=== PATIENT | male | born 1940 | race Caucasian/White ===

== ENCOUNTER 2018-08-06 14:00 | Inpatient (IN) ==
--- NOTE | 2018-08-06 14:41 | PROVIDER DOCUMENTATION ---
[id number] Abuse/Overdose - General Chief Complaint: Fall Stated Complaint: FALL Time Seen by Provider: 08/06/18 14:11 Allergies/Adverse Reactions: Allergies Allergy/AdvReac Type Severity Reaction Status Date / Time No Known Allergies Allergy Verified 08/06/18 14:41 Progress - PLAN OF CARE/RESULTS Progress/Plan/Lab Results: Orders Category Date Time Status cxr [CHEST-2 VIEWS] [RAD] Stat Exams 08/06/18 14:35 Ordered BNP [PRO B-NATRIURETIC PEPTIDE] Stat Lab 08/06/18 14:35 Uncollected CBC WITH ELECTRONIC DIFF [HEME] Stat Lab 08/06/18 14:35 Uncollected COMPREHENSIVE METABOLIC PANEL [CHEM] Stat Lab 08/06/18 14:35 Uncollected
--- NOTE | 2018-08-06 14:50 | PROVIDER DOCUMENTATION ---
HPI-General Adult - General Chief Complaint: Fall Stated Complaint: FALL Time Seen by Provider: 08/06/18 14:11 Source: patient, family Allergies/Adverse Reactions: Patient Allergies Allergy/AdvReac Type Severity Reaction Status Date / Time No Known Allergies Allergy Verified 08/06/18 14:41 Home Medications: Home Medication List Medication Instructions Recorded Confirmed Last Taken Type Amlodipine [Norvasc] 5 mg PO DAILY 08/06/18 08/06/18 Unknown History Aspirin [Adult Aspirin] 81 mg PO DAILY 08/06/18 08/06/18 Unknown History Budesonide/Formoterol Fumarate 2 inh INH BID 08/06/18 08/06/18 Unknown History [Symbicort 160-4.5 Mcg Inhaler] Fluticasone Propionate [Flonase 2 inh INH DAILY PRN 08/06/18 08/06/18 Unknown History Allergy Relief] Furosemide [Lasix] 20 mg PO PRN PRN 08/06/18 08/06/18 Unknown History Ketoconazole 2% Cream [Nizoral 2% 1 applicatn ORDERED PRN PRN 08/06/18 08/06/18 Unknown History Cream] LISINOpril [Prinivil] 10 mg PO DAILY 08/06/18 08/06/18 Unknown History Lanolin Cream [Lantiseptic Cream] 1 applicatn ORDERED BID 08/06/18 08/06/18 Unknown History Niacin 1,000 mg PO DAILY 08/06/18 08/06/18 Unknown History Omeprazole [Prilosec] 20 mg PO DAILY 08/06/18 08/06/18 Unknown History Ropinirole [Requip] 1 tab PO BID 08/06/18 08/06/18 Unknown History Sertraline HCl [Zoloft] 100 mg PO DAILY 08/06/18 08/06/18 Unknown History - History of Present Illness -Gen Adult Nature of Presenting Problems: Patient is poor Historian and Hx by : she said he fell twice yesterday, not sure if he hit his head or no, no LOC reported. patient has COPD on Home O2, dementia, parkinson. report he has falls in the last few month not sure why. patient denies chest pain, SOB, lightheadedness or other complaints. patient walk with walker and has left side prosthetic limb. patient with Hx of abdominal Aortic Aneurysm 5 cm plan is to monitor due to patient fragile for surgery. Review of Systems - Adult - REVIEW OF SYSTEMS - ADULT Constitutional: reports: no symptoms reported Eyes: reports: no symptoms reported Ears, Nose, Mouth & Throat: reports: no symptoms reported Cardiovascular: reports: no symptoms reported Respiratory: reports: no symptoms reported Gastrointestinal: reports: no symptoms reported Neurological: reports: other (dementia) Past History - Adult - PAST MEDICAL HISTORY-ADULT Review of Records: reports: Old Records Reviewed, Nursing Assessment Review Physical Exam-General - PHYSICAL EXAM-ADULT Initial Vital Signs Reviewed: Yes - CONSTITUTIONAL General Appearance: alert, mild distress - EYES Eyes: PERRL/EOMI - HEAD, EARS, NOSE, MOUTH & THROAT HENMT: normocephalic/atraumatic - NECK Neck: non-tender, full range of motion, supple - RESPIRATORY Respiratory: lungs clear, normal breath sounds - CARDIOVASCULAR Cardiovascular: normal peripheral pulses, regular rate, rhythm, no edema - GASTROINTESTINAL (ABDOMEN) Abdominal Exam: normal bowel sounds, non tender, soft - MUSCULOSKELETAL Back Exam: no CVA tenderness, no vertebral tenderness Extremity: tenderness (Palpation left hip), other (left lower leg amputation. Swelling Distal left forearm, TTT Neurovascualr exam NL B/L UE LE) - PSYCHIATRIC Psych/Mental Status: depressed affect Progress - PLAN OF CARE/RESULTS Progress/Plan/Lab Results: Orders Category Date Time Status cxr [CHEST-1 VIEW] [RAD] Stat Exams 08/06/18 14:43 Ordered BNP [PRO B-NATRIURETIC PEPTIDE] Stat Lab 08/06/18 14:35 Uncollected CBC WITH ELECTRONIC DIFF [HEME] Stat Lab 08/06/18 14:35 Uncollected COMPREHENSIVE METABOLIC PANEL [CHEM] Stat Lab 08/06/18 14:35 Uncollected TROPONIN T Stat Lab 08/06/18 14:44 Uncollected EKG [EKG] Stat Ther 08/06/18 14:44 Ordered Patient care, assessment and plan discussed with the attending physician Dr. Swift and she agree with the plan as documented. Result Diagrams: 08/06/18 15:02 08/06/18 15:02 - REASSESSMENT Reassessment #1 Status: unchanged Reassessment #2 Status: unchanged - XRAY 1 XRAY: Left XRAY Study: Wrist (Fractures to the distal radius and ulna.) - CT/MRI 1 CT Study: Angiogram (HISTORY: fall x2 tachypnea, tachycardia TECHNIQUE: 1. CT chest with intravenous contrast. Arteriogram protocol with MIP images. 2. CT abdomen with intravenous contrast. Arteriogram protocol with MIP images. COMPARISON: None. FINDINGS: Chest: There are tiny bilateral pleural effusions. The heart is enlarged. No thoracic aortic aneurysm or section. Normal opacific ation of the pulmonary arteries and their major branches. No enlarged mediastinal or hilar lymph nodes. Moderate to prominent emphysema. No pneumothoraces. No displaced rib fracture. The thoracic spine will be discussed under the separate thoracic spine report. ABDOMEN: There is a calcified gallst one. No adjacent inflammation. Normal enhancement of the liver and spleen. No hepatic or splenic laceration. Normal pancreas and adrenal glands. Normal enhancement of the kidneys. No retroperitoneal hematoma. No bowel obstruction. No ascites. Prominent atherosclerosis. Approximately 30% narrowing to the takeoff of the celiac artery and superior mesenteric artery. 50-70% narrowing at the takeoff of the left renal artery. Approximately 30% narrowing at the takeoff of the right renal artery. There is a large distal abdominal aortic aneurysm. This measures 5.5 cm in AP diameter and 5.5 cm in transverse diameter. This extends 9 cm in length. It begins beneath the takeoff of the renal arteries. It does not extend into the iliac arteries. The lumbar spine will be discussed under the separate lumbar spine report. IMPRESSION: Chest: No injury. There are small pleural effusions and cardiomegaly. Abdomen and pelvis: No injury. Large distal abdominal aortic aneurysm.), Head (EXAM : CT HEAD/C-SPINE W/O CONTRAST HISTORY: fall x2 TECHNIQUE: 1. CT head without contrast 2. CT cervical spine without contrast COMPARISON: None. FINDINGS: Head: No parenchymal hemorrhage. No epidural or subdural hematoma. No subarachnoid hemorrhage. There is atrophy with chronic microvascular ischemic c hanges and old right basal ganglia lacunar infarct. No mass identified on this noncontrasted exam. No hydrocephalus. No skull fracture. Cervical spine: Mild scoliosis with mild degenerative changes.. No precervical soft tissue swelling. No subluxation. No fracture. IMPRESSION: Head: No hemorrhage. No injury. Cervical spine: No acute fracture.), Lumbar Spine (TECHNIQUE: 1. CT thoracic spine without contrast 2. CT lumbar spine without contrast COMPARISON: No plain films were obtained. Plain films should have been obtained prior to the CT. FINDINGS: Thoracic spine: Mild scoliosis. 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 Minimal anterior wedging to the T5 vertebra. Age indete rminate. No paraspinal hematoma. No spinal stenosis. Lumbar spine: Approximately 50% compression fracture to the L1 vertebra. The bone spurs at T12-L1 and L1-L2. Mild anterior wedging to the L2 vertebra. Collapse of the L4 no paraspinal hematoma. Multilevel spinal stenosis. Vertebra. Bridging bone spurring at L3-4. IMPRESSION: Thoracic spine: Minimal anterior wedging to the T5 vertebra which may be old. Lumbar spine: Multiple lumbar fractures. All of these may be old. This exam was performed using automated exposure control, adjustment of mA or kV according to patient size, and/or use of iterative reconstruction technique.), Pelvis (TECHNIQUE: CT pelvis without contrast COMPARISON: No plain films obtained. Plain films should have been performed prior to the CT. FINDINGS: There is an intertrochanteric fracture to the left hip. The femoral head remains in the acetabulum. The femoral shaft is rotated and superiorly placed. No fracture to the right hip. No widening of the pubic symphysis. IMPRESSION: Intertrochanteric fracture to the left hip.) - CONSULTS/PCP/HOSPITALIST Notification #1 *Consult/PCP/Hospitalist*: Dr. Acevedo Time Discussed: 20:55 Consult Disposition: Admit (Hx, PE and all imaging finding discussed. admit.) #2 Consult: Dr. Ty Time Discussed: 21:09 Consult Disposition: Admit (Hx, PE, patient care and ortho recommendations discussed.) Departure - Departure Date of Disposition Decision: 08/06/18 Time of Disposition Decision: 21:09 DIAGNOSIS: Pleural effusion Fracture, intertrochanteric, left femur Qualifiers: Encounter type: initial encounter Fracture type: closed Fracture alignment: nondisplaced Qualified Code(s): S72.145A - Nondisplaced intertrochanteric fracture of left femur, initial encounter for closed fracture Fracture of distal radius and ulna Qualifiers: Encounter type: initial encounter Fracture type: closed Laterality: left Qualified Code(s): S52.502A - Unspecified fracture of the lower end of left radius, initial encounter for closed fracture Leukocytosis Qualifiers: Leukocytosis type: other Qualified Code(s): D72.828 - Other elevated white blood cell count AAA (abdominal aortic aneurysm) Qualifiers: Presence of rupture: without rupture Qualified Code(s): I71.4 - Abdominal aortic aneurysm, without rupture Disposition: ADMITTED INPATIENT 09 Certified Medical Emergency: Emergent Condition: Stable - Critical Care Note This patient required my direct & personal management of CC.: No Attestation - Physician/ YO Attestation Patient care was provided by Advanced Practice Provider:: No The physician spent face to face time with patient:: Yes Advanced Practice Provider documentation review:: Supervising physician onsite and consulted in the evaluation and care of this patient. The physician did have a face to face encounter with the patient.
--- NOTE | 2018-08-06 15:41 | Diag Imaging Result Doc PS360 ---
EXAM: CHEST-1 VIEW HISTORY: fall, tachypnea TECHNIQUE: Semiupright chest single view COMPARISON: None. FINDINGS: Poor inspiratory effort. There is a small left pleural effusion. There is atelectasis or an infiltrate in the left base. No cardiomegaly. IMPRESSION: Small left pleural effusion with basilar atelectasis and possibly and underlying infiltrate Electronically signed by Manny Bee 08/06/2018 3:38 PM
[2018-08-06 15:42] LABS: BASO# 0.03 X1000 (0.0-0.2); BASO% 0.2 % (0.0-0.8); EOS# 0.19 X1000 (0.0-0.7); EOS% 1.4 % (0.0-10.0); HEMOGLOBIN 10.9 g/dL (14.0-18.0); IMM GRAN# 0.04 X1000 (0.0-0.04); IMM GRAN% 0.3 % (0.0-0.5); LYMPH# 0.95 X1000 (1.2-3.4); LYMPH% 6.9 % (20.5-51.1); MCH 24.4 PG (27-31); MCHC 30.3 g/dL (33-37); MCV 80.5 FL (81-99); MONO# 1.13 X1000 (0.11-0.59); MONO% 8.2 % (1.7-9.3); MPV 10.1 FL (7.4-10.4); NEUT# 11.51 X1000 (1.4-6.5); PLT 346 X1000 (130-400); RBC 4.47 XMIL (4.7-6.1); RDW 17.6 % (11.5-14.5); WBC 13.85 X1000 (4.8-10.8)
[2018-08-06] MEDS ORDERED: ROCEPHIN 1 GM in NS 50 ML IV ONE (16:00)
[2018-08-06 16:11] LABS: AGAP 9; ALB/GLOB RATIO 0.5; ALBUMIN 2.2 g/dL (3.5-5.0); ALKALINE PHOSPHATASE 113 U/L (32-122); BUN 11 mg/dL (8-22); CALCIUM 8.1 mg/dL (8.8-10.2); CHLORIDE 103 mmol/L (98-107); COSMO 273; CREATININE 0.6 mg/dL (0.7-1.2); ESTIMATED GFR > 60; GLUCOSE 131 mg/dL (70-104); GOT 17 U/L (10-34); GPT 15 U/L (10-44); POTASSIUM 3.2 mmol/L (3.5-5.1); SODIUM 136 mmol/L (136-145); TCO2 24 mmol/L (25-35); TOTAL BILIRUBIN 0.25 mg/dL (0.20-1.00); TOTAL PROTEIN 6.9 g/dL (6.3-8.3)
--- NOTE | 2018-08-06 17:18 | Diag Imaging Result Doc PS360 ---
EXAM : CT HEAD/C-SPINE W/O CONTRAST HISTORY: fall x2 TECHNIQUE: 1. CT head without contrast 2. CT cervical spine without contrast COMPARISON: None. FINDINGS: Head: No parenchymal hemorrhage. No epidural or subdural hematoma. No subarachnoid hemorrhage. There is atrophy with chronic microvascular ischemic changes and old right basal ganglia lacunar infarct. No mass identified on this noncontrasted exam. No hydrocephalus. No skull fracture. Cervical spine: Mild scoliosis with mild degenerative changes.. No precervical soft tissue swelling. No subluxation. No fracture. IMPRESSION: Head: No hemorrhage. No injury. Cervical spine: No acute fracture. This exam was performed using automated exposure control, adjustment of mA or kV according to patient size, and/or use of iterative reconstruction technique. Electronically signed by Manny Bee 08/06/2018 5:16 PM
--- NOTE | 2018-08-06 17:28 | Diag Imaging Result Doc PS360 ---
EXAM: CT T-SPINE/L-SPINE W/O CON HISTORY: fall x2 TECHNIQUE: 1. CT thoracic spine without contrast 2. CT lumbar spine without contrast COMPARISON: No plain films were obtained. Plain films should have been obtained prior to the CT. FINDINGS: Thoracic spine: Mild scoliosis. 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 Minimal anterior wedging to the T5 vertebra. Age indeterminate. No paraspinal hematoma. No spinal stenosis. Lumbar spine: Approximately 50% compression fracture to the L1 vertebra. The bone spurs at T12-L1 and L1-L2. Mild anterior wedging to the L2 vertebra. Collapse of the L4 no paraspinal hematoma. Multilevel spinal stenosis. Vertebra. Bridging bone spurring at L3-4. IMPRESSION: Thoracic spine: Minimal anterior wedging to the T5 vertebra which may be old. Lumbar spine: Multiple lumbar fractures. All of these may be old. This exam was performed using automated exposure control, adjustment of mA or kV according to patient size, and/or use of iterative reconstruction technique. Electronically signed by Manny Bee 08/06/2018 5:26 PM
--- NOTE | 2018-08-06 17:37 | Diag Imaging Result Doc PS360 ---
EXAM: CT PELVIS W/O CONTRAST HISTORY: fall x2 unable to walk TECHNIQUE: CT pelvis without contrast COMPARISON: No plain films obtained. Plain films should have been performed prior to the CT. FINDINGS: There is an intertrochanteric fracture to the left hip. The femoral head remains in the acetabulum. The femoral shaft is rotated and superiorly placed. No fracture to the right hip. No widening of the pubic symphysis. IMPRESSION: Intertrochanteric fracture to the left hip. This exam was performed using automated exposure control, adjustment of mA or kV according to patient size, and/or use of iterative reconstruction technique. Electronically signed by Manny Bee 08/06/2018 5:35 PM
--- NOTE | 2018-08-06 17:52 | Diag Imaging Result Doc PS360 ---
EXAM: CT ANGIOGRAM THORAX/ABDOMEN HISTORY: fall x2 tachypnea, tachycardia TECHNIQUE: 1. CT chest with intravenous contrast. Arteriogram protocol with MIP images. 2. CT abdomen with intravenous contrast. Arteriogram protocol with MIP images. COMPARISON: None. FINDINGS: Chest: There are tiny bilateral pleural effusions. The heart is enlarged. No thoracic aortic aneurysm or section. Normal opacification of the pulmonary arteries and their major branches. No enlarged mediastinal or hilar lymph nodes. Moderate to prominent emphysema. No pneumothoraces. No displaced rib fracture. The thoracic spine will be discussed under the separate thoracic spine report. ABDOMEN: There is a calcified gallstone. No adjacent inflammation. Normal enhancement of the liver and spleen. No hepatic or splenic laceration. Normal pancreas and adrenal glands. Normal enhancement of the kidneys. No retroperitoneal hematoma. No bowel obstruction. No ascites. Prominent atherosclerosis. Approximately 30% narrowing to the takeoff of the celiac artery and superior mesenteric artery. 50-70% narrowing at the takeoff of the left renal artery. Approximately 30% narrowing at the takeoff of the right renal artery. There is a large distal abdominal aortic aneurysm. This measures 5.5 cm in AP diameter and 5.5 cm in transverse diameter. This extends 9 cm in length. It begins beneath the takeoff of the renal arteries. It does not extend into the iliac arteries. The lumbar spine will be discussed under the separate lumbar spine report. IMPRESSION: Chest: No injury. There are small pleural effusions and cardiomegaly. Abdomen and pelvis: No injury. Large distal abdominal aortic aneurysm. This exam was performed using automated exposure control, adjustment of mA or kV according to patient size, and/or use of iterative reconstruction technique. Electronically signed by Manny Bee 08/06/2018 5:49 PM
[2018-08-06] MEDS: NS 1,000 ML IV SCH ×2 (17:55→18:00)
--- NOTE | 2018-08-06 18:18 | Diag Imaging Result Doc PS360 ---
EXAM: WRIST COMPLETE LEFT HISTORY: left wrist swelling after fall TECHNIQUE: Left wrist, three views COMPARISON: None. FINDINGS: There is a distal radius fracture with compaction and dorsal angulation. A portion of the fracture appears to extend into the radiocarpal joint. There is also a fracture through the ulnar styloid process. IMPRESSION: Fractures to the distal radius and ulna. Electronically signed by Manny Bee 08/06/2018 6:15 PM
[2018-08-06] MEDS ORDERED: LASIX IV ONE (19:50)
[2018-08-06 20:24] LABS: URINE SOURCE CLEAN CATCH
[2018-08-06 20:31] LABS: BILIRUBIN URINE NEGATIVE (NEGATIVE); BLOOD URINE TRACE (NEGATIVE); COLOR YELLOW; GLUCOSE URINE NEGATIVE (NEGATIVE); KETONE URINE NEGATIVE (NEGATIVE); LEUKOCYTES URINE NEGATIVE (NEGATIVE); NITRITE URINE NEGATIVE (NEGATIVE); PH URINE 6.5; PROTEIN URINE 30 mg/dL (NEGATIVE); SP GRAVITY URINE > 1.050; TURBIDITY URINE CLEAR (CLEAR); UROBILINOGEN URINE NORMAL (NORMAL)
[2018-08-06 20:32] LABS: UR EPITHELIAL CELLS <10 /HPF (<10); URINE BACTERIA NEGATIVE /HPF; URINE RBC <10 /HPF (<10); URINE WBC <10 /HPF (<10)
[2018-08-06] MEDS ORDERED: MORPHINE IV ONE (21:09)
[2018-08-06] MEDS ORDERED: KLOR-CON PO ONE (22:09)
[2018-08-07] MEDS ORDERED: FLONASE NAS PRN (01:04)
[2018-08-07] MEDS ORDERED: NIZORAL 2% CREAM TOP PRN (01:04)
[2018-08-07] MEDS ORDERED: TYLENOL PO PRN (06:14)
[2018-08-07] MEDS ORDERED: ZOFRAN IV PRN ×2 (06:15→15:54)
[2018-08-07] MEDS: PRILOSEC PO SCH (06:29)
--- NOTE | 2018-08-07 06:33 | HISTORY AND PHYSICAL ---
ADDENDUM REPORT: Mr. Villaseñor is a 77-year-old male with a past medical history of hypertension, Parkinson's disease, accompanied dementia, asthma, hyperlipidemia, who was brought by his family the day after he fell twice. The patient never lost consciousness. He was unable to get up when he fell the second time. He was assisted by neighbors to his recliner where he stayed for the rest of the day throughout most of the day. The reason why the patient did not come in earlier is because the patient denied any pain or discomfort. When they tried to get him up they noticed he was grimacing and brought him to the hospital today. X-rays were done and they showed that he had a fracture of the distal radius and ulna on the left side and an intertrochanteric fracture of the left hip. Dr. Khan was notified and he will see the patient in the a.m. Otherwise the patient denies any complaints whatsoever, even pain. However, his exam showed there was tenderness when palpating the overlying left hip area, and the patient was unable to flex and extend his left knee because of the pain. Other than the expected pin rolling movement of his right hand and his mask facies, no other findings were noted on exam. Plan is to treat the patient symptomatically pending surgery. I have reconciled his home medications. The patient's lab work was also notable for leukocytosis and anemia. The former I suspect might be reactive. His potassium was 3.2 and this will be corrected. We will check his magnesium level and correct that too. cc: Chaim Ty MD
--- NOTE | 2018-08-07 07:32 | EKG Report ---
Test Performed on : 08/06/2018 9:02:10 PM Test Reason : CP Blood Pressure : / mmHG Vent. Rate : 099 BPM Atrial Rate : 099 BPM P-R Int : 128 ms QRS Dur : 086 ms QT Int : 362 ms P-R-T Axes : 023 -05 031 degrees QTc Int : 464 ms Normal sinus rhythm. Inferior infarct , age undetermined Abnormal ECG No previous ECGs available Unconfirmed Result
[2018-08-07 07:58] LABS: BASO# 0.03 X1000 (0.0-0.2); BASO% 0.2 % (0.0-0.8); EOS# 0.76 X1000 (0.0-0.7); EOS% 6.1 % (0.0-10.0); HEMATOCRIT 34.5 % (42.0-52.0); HEMOGLOBIN 10.3 g/dL (14.0-18.0); IMM GRAN# 0.04 X1000 (0.0-0.04); IMM GRAN% 0.3 % (0.0-0.5); LYMPH# 0.99 X1000 (1.2-3.4); LYMPH% 7.9 % (20.5-51.1); MCH 24.6 PG (27-31); MCHC 29.9 g/dL (33-37); MCV 82.3 FL (81-99); MONO# 1.03 X1000 (0.11-0.59); MONO% 8.2 % (1.7-9.3); MPV 9.8 FL (7.4-10.4); NEUT# 9.64 X1000 (1.4-6.5); NEUT% 77.3 % (42.2-75.2); PLT 337 X1000 (130-400); RBC 4.19 XMIL (4.7-6.1); RDW 17.7 % (11.5-14.5); WBC 12.49 X1000 (4.8-10.8)
[2018-08-07] MEDS: SYMBICORT 160/4.5 MICROGM INHALER INH SCH ×2 (08:06→19:10)
[2018-08-07 08:30] LABS: AGAP 7; BUN 11 mg/dL (8-22); CALCIUM 8.4 mg/dL (8.8-10.2); CHLORIDE 105 mmol/L (98-107); COSMO 276; CREATININE 0.7 mg/dL (0.7-1.2); ESTIMATED GFR > 60; GLUCOSE 124 mg/dL (70-104); POTASSIUM 3.7 mmol/L (3.5-5.1); SODIUM 138 mmol/L (136-145); TCO2 26 mmol/L (25-35)
--- NOTE | 2018-08-07 08:31 | CONSULTATION ---
DATE OF CONSULTATION: 08/07/2018 HISTORY OF PRESENT ILLNESS: The patient is a pleasant 77-year-old male who is 2 days status post fall injuring his left hip and left wrist. Patient presented to the emergency room yesterday after sustaining 2 falls the day before. There is no reported loss of conscious. The patient uses a prosthesis for his left lower extremity for below-knee amputation. When he tried to get up yesterday, they noticed he was grimacing and had some pain and discomfort. He presented to the emergency room. X-rays revealed left intertrochanteric fracture and left displaced distal radial fracture. He has placed in a splint, admitted to the hospital and Orthopedic consultation was requested. HOME MEDICATIONS: Norvasc 5 mg p.o. daily, adult aspirin 81 mg p.o. daily, Symbicort inhaler 2 puffs b.i.d., Flonase allergy relief 2 puffs p.r.n., Lasix 20 mg p.o. p.r.n., niacin 1000 mg p.o. daily, Prilosec 20 mg p.o. daily, Requip 0.25 mg p.o. b.i.d., Zoloft 100 mg p.o. daily, Prinivil 10 mg p.o. daily. Ketoconazole cream, applied as needed, Lantiseptic cream apply twice a day. ALLERGIES: No known drug allergies. PAST MEDICAL HISTORY: Significant for COPD on home O2. Dementia. Parkinson's. Abdominal aortic aneurysm 5 cm. History of lumbar compression fractures. Gastroesophageal reflux disease. PAST SURGICAL HISTORY: Left [id number] amputation. Hernia repair x2. Back surgery. PHYSICAL EXAMINATION: General: Patient is alert and cooperative with exam. Musculoskeletal: His left upper extremity splint is in place. He has some swelling about his fingers. Tenderness to palpation along distal radius. He has good capillary refill distally. He is able to flexor and extend his fingers. His cervical spine is nontender to palpation. His right upper extremity has no obvious palpable deformities. There is significant moaning and discomfort with range of motion. His left lower extremity has tenderness to palpation along the left hip, pain with gentle movement. He has no swelling about the knee and nontender to palpation about the knee or his stump. Right lower extremity has no palpable deformity and no significant discomfort with gentle movement. IMAGING: X-rays were reviewed and revealed a left displaced intertrochanteric femur fracture. X- rays left wrist reveal left displaced distal radial fracture. IMPRESSION: 1. Left intertrochanteric fracture. 2. Left distal radial fracture. PLAN: At this point, I discussed treatment options with the patient and family. At this time, I would recommend to proceed with intramedullary nailing of the left femur and open reduction, internal fixation left distal radius. Risks and benefits of surgery were explained, including the risks of anesthesia, , bleeding, infection, failure to relieve pain, postoperative stiffness, nerve injury, blood clots, and other imponderables. All questions were answered. The patient and family agree with treatment plan. Plan on proceeding to surgery later today if he is medically cleared. cc: Merritt Khan MD
[2018-08-07] MEDS: MORPHINE IV PRN (09:16)
[2018-08-07] MEDS: ZOLOFT PO SCH (09:16)
[2018-08-07] MEDS: REQUIP PO SCH ×2 (09:17→19:49)
[2018-08-07] MEDS: NORVASC PO SCH (09:17)
[2018-08-07] MEDS: LANTISEPTIC CREAM TOP SCH ×2 (09:17→19:52)
[2018-08-07] MEDS: PRINIVIL PO SCH (09:17)
[2018-08-07] MEDS ORDERED: XYLOCAINE-MPF 2% ONE (12:14)
[2018-08-07] MEDS ORDERED: KEFZOL 1 GM/D5W 1 GM/50 ML IVPB ONE (12:24)
[2018-08-07] MEDS ORDERED: QUELICIN (DOSE) ONE (12:26)
[2018-08-07] MEDS ORDERED: DIPRIVAN 1% ONE (12:27)
[2018-08-07] MEDS ORDERED: NEO-SYNEPHRINE ONE (12:57)
[2018-08-07] MEDS ORDERED: ZEMURON ONE (13:00)
[2018-08-07] MEDS ORDERED: FENTANYL ONE (13:27)
[2018-08-07] MEDS ORDERED: NEOSPORIN G.U. IRRIGANT ONE (13:34)
[2018-08-07] MEDS ORDERED: MARCAINE 0.25% PF ONE (13:34)
[2018-08-07] MEDS ORDERED: OFIRMEV 1000 MG/ISOTONIC SOLN 1,000 MG/100 ML BOTTLE ONE (13:54)
[2018-08-07] MEDS ORDERED: ROBINUL ONE (14:29)
[2018-08-07] MEDS ORDERED: NEOSTIGMINE ONE (14:29)
--- NOTE | 2018-08-07 15:05 | OPERATIVE NOTE ---
PROCEDURE DATE: 08/07/2018 PREOPERATIVE DIAGNOSES: 1. Left intertrochanteric femur fracture. 2. Left displaced distal radial fracture. POSTOPERATIVE DIAGNOSES: 1. Left intertrochanteric femur fracture. 2. Left displaced distal radial fracture. PROCEDURES: 1. Intramedullary nailing left femur with a Synthes TFN 12 x 107 mm TFN nail. 2. Open reduction and internal fixation left distal radius with a Synthes volar column distal radial locking plate. SURGEON: Merritt Khan MD. BRANCH COORDINATOR: Fozia Akins ANESTHESIA: General. IV FLUIDS: 1500 mL lactated Ringer's. ESTIMATED BLOOD LOSS: 50 mL. TOURNIQUET TIME: 45 minutes at 250 mmHg. COMPLICATIONS: None. INDICATIONS: The patient is a pleasant 77-year-old male who is 2 days status post fall injuring his left hip and left wrist. X-rays revealed left displaced intertrochanteric femur fracture, and a left displaced distal radial fracture. He was admitted to the hospital yesterday and recommendation to proceed with intramedullary nailing of the left femur and open reduction internal fixation left distal radius. Risks and benefits of surgery were explained, including the risks of anesthesia, , bleeding, infection, failure to relieve pain, postop stiffness, nerve injury, blood clots, and other imponderables. All questions were answered. Patient and family wished to proceed with surgery. DETAILS OF OPERATION: Patient was taken to the operating room and underwent general anesthesia. He was then placed supine on the fracture table. After obtaining provisional reduction of left lower extremity which was confirmed with C-arm visualization, the knee was prepped and draped in usual sterile fashion. Approximately 3 fingerbreadths proximal to the greater trochanter, lateral incision was made. The blunt dissection was performed of the greater trochanter with scissors. After this had been performed, a guide pin was then placed on the tip of the greater trochanter and advanced in the intramedullary canal. It had good positioning confirmed with C-arm visualization proximal to this. This was then reamed, and the guide pin was removed. The ball- tipped guide pin was then advanced in the intramedullary canal and advanced down the shaft. After a few attempts, it was able to obtain good position both AP and lateral projections. An 11 x 380 mm Synthes TFN nail was attempted to advance over the guide pin in the most distal aspect however, was unable to be fully advanced secondary to bowing of the femur and was fearful there would be a stress riser at the distal anterior portion of the femur. Therefore, it was removed and a 12 x 110 mm Synthes TFN nail was then placed. Using the proximal guide, incision was made in the proximal aspect. The guide was then placed along the lateral cortex. Guide pin was then placed across the fracture site into the femoral neck and head. We had good positioning confirmed with AP and lateral projections. After this had been confirmed, the lateral cortex was reamed. A 95 mm helical blade was then advanced and had good purchase. The proximal screw was tightened in a standard fashion. Using the guide, the distal locking screw was placed from lateral to medial through a stab incision. It had good purchase. Final C-arm visualization showed good alignment of the fracture. Good position of the hardware. The wounds were copiously irrigated. #1 Vicryl was used to repair the deep fascia of the proximal wound, followed by 2-0 Vicryl in the 2 proximal wounds, and skin robert. Adaptic, sterile 4 x 4's, ABD pad, and tape to the left lower extremity. Attention then turned to the left upper extremity where it was subsequently prepped and draped in usual sterile fashion. An Esmarch was used to exsanguinate left upper extremity. The tourniquet was inflated to 250 mmHg. A longitudinal incision was made along the distal radius. A volar approach to the [*]was performed. The interval between the flexor carpi radialis and the brachioradialis was developed. The radial artery was retracted laterally. Elevation of the pronator quadratus was then performed and retracted ulnarly. The fracture site was identified. After obtaining reduction, a Synthes volar column distal locking plate was then placed and first secured with a bicortical screw proximally. The distal locking pegs were then placed. It had good position confirmed with C-arm visualization. After this had been performed, the plate was repositioned on the proximal shaft and the bicortical screws were removed and redrilled and positioned. Two locking screws then placed in the proximal fracture site. The bicortical screw was exchanged for a locking screw at this site too. Final C-arm visualization revealed good alignment of fracture, and good position of the hardware. Wound was copiously irrigated. 2-0 Vicryl used to repair the subcutaneous tissue followed by 4-0 nylon. 0.25% Marcaine with epinephrine was injected locally. Adaptic, sterile 4 x 4, Webril, and a volar splint was applied to left lower extremity. The patient tolerated procedure well with no complications. Transferred to recovery room in stable condition. cc: Merritt Khan MD
[2018-08-07] MEDS ORDERED: NS 1,000 ML ONE (15:44)
[2018-08-07] MEDS ORDERED: MORPHINE IV PRN (15:54)
[2018-08-07] MEDS ORDERED: MILK OF MAGNESIA PO PRN (15:54)
[2018-08-07] MEDS ORDERED: HALDOL IV PRN (16:00)
[2018-08-07] MEDS: LEVAQUIN 750 MG/D5W 750 MG/150 ML IVPB IV SCH (16:41)
[2018-08-07] MEDS: NS 1,000 ML IV SCH ×2 (16:41→19:50)
[2018-08-07] MEDS: COLACE PO SCH (19:49)
[2018-08-07] MEDS: OXY IR PO PRN (19:49)
[2018-08-07] MEDS: TYLENOL PO SCH (19:49)
[2018-08-07] MEDS: KEFZOL 1 GM/D5W 1 GM/50 ML IVPB IV SCH (19:50)
[2018-08-07] MEDS: PERIDEX MT SCH (19:50)
[2018-08-08] MEDS: PERIDEX MT SCH ×3 (00:40→21:04)
[2018-08-08] MEDS: REQUIP PO SCH ×3 (00:45→21:06)
[2018-08-08] MEDS: COLACE PO SCH ×2 (00:47→21:04)
[2018-08-08] MEDS: LANTISEPTIC CREAM TOP SCH ×3 (00:47→21:07)
--- NOTE | 2018-08-08 02:45 | HISTORY AND PHYSICAL ---
PRIMARY CARE PROVIDERS: Dr. Merritt Salcedo. DATE AND TIME: 08/08/2018 at 0330 hours. CHIEF COMPLAINT: Fall. HISTORY OF PRESENT ILLNESS: Mr. Villaseñor is a 77-year-old male with a past medical history most notable for dementia, Parkinson disease, COPD, hypertension. His reports that he also does have an abdominal aneurysm which they are aware of and have been monitoring. At last measurement, it was noted to be 5 cm. She also reports that he does have a left fbhva-fru-tdqf amputation secondary to he fell out of a tree stand and did have a significant left ankle fracture, which unfortunately he did have problems with infection with. He also did get pneumonia during that admission after his traumatic fall and did become septic, and did have to be intubated at one time. She states that now he does have a prosthesis that he wears on his left lower extremity. She states this was recently replaced, though she had not immediately noticed him having any trouble with ambulation after he had the prosthesis replaced, she states that he had taken the plastic liner out of it, this may have caused some complications with the way the prosthesis fit, but whether or not this contributed to his fall we are uncertain of at this time. She states that the patient does use the assistance of a walker sometimes. Though his denies him having any big changes in the appearance of his ambulation or gait recently. She does state, though, that frequently he does get in a too big of a hurry when he is ambulating and this does occasionally lead to him falling. He also does have a history of COPD and does wear nasal cannula at home, approximately 2 to 2.5 L continuously. She reports that he did have 2 falls yesterday, the 1st one did occur earlier in the day. They had arrived at her doctor's appointment and he went to get out of the car, and she does not know if he got maybe in too big of a hurry, but upon getting out he did fall. She denied him having any injury with this fall. The 2nd fall was later on in the day, for which she states that they had come up the wheelchair ramp that leads into their house and he was standing behind her at the door waiting for her to open the door. She states somehow he may have stepped back, but when he did he lost his balance and did tumble, she states rolled, a few times down the wheelchair ramp. She did have to assist him up. They did place him in a recliner for awhile to rest and the patient denied any pain. She states this is why they did not immediately bring him to the hospital. Though they did note that later on they went to get him up and he was doing quite a bit of grimacing, as though he was in pain. They ultimately did decide to bring him to the ER for further evaluation. Upon evaluation in the ER, he did receive several x-rays and CTs. They did do a head CT, cervical spine, thoracic and lumbar spine CT, a pelvis CT, and a chest abdomen CTA as well as a left wrist x-ray. Findings did reveal that he had a left distal radius and ulnar fracture. He also did have a left intertrochanteric hip fracture. Other nonacute findings did show that he does have distal abdominal aortic aneurysm which is noted to be 5.5 cm in AP diameter and 5.5 cm in transverse diameter, which extended approximately 9 cm in length. Also was noted to be some small pleural effusions and cardiomegaly. Other than this, there were no other acute findings. The patient upon my examination, was resting in the inpatient bed, he was in no acute distress. He was alert and oriented to person, place, and time. He was not complaining of any pain. He denies any headache, dizziness, chest pain, shortness of breath, or cough. He denied any shortness of breath or cough. He denied any abdominal pain, nausea, vomiting, or diarrhea. He denied any dysuria or urinary frequency. He denied any pain or swelling in extremities at this time. There may likely be a disconnect with the patient with how he is able to express that he is in pain, though he will grimace as though he is in pain with movement and palpation of his left upper extremity, left hip, and left lower extremity, though when you ask him if he is hurting he says no. His states that this is not of new onset for him and that he does have difficulty expressing when he is hurting, so we will closely monitor him for not only reported pain but physiological symptoms of pain. He has been placed on the surgical floor with telemetry. REVIEW OF SYSTEMS: A 14-point review of systems was conducted with the patient and all were negative, except for pertinent positives mentioned above in HPI. PAST MEDICAL HISTORY: 1. COPD, on home oxygen with nasal cannula at 2 to 2.5 L. 2. Dementia. 3. Parkinson disease. 4. Hypertension. 5. History of an abdominal aortic aneurysm which is being monitored closely with the last measurement of 5 cm, according to his . 6. History of hospitalization after a traumatic fall from a tree stand, for which he did end up undergoing a left dyxid-frn-eijb amputation secondary to an ankle fracture which did become infected. Also during this admission, he did get pneumonia and became septic and require intubation. PAST SURGICAL HISTORY: 1. Hernia repair x2. 2. Left ankle surgery. 3. Left kvcvm-rxx-vazm amputation. 4. Low back surgery. SOCIAL HISTORY: The patient is a former smoker. He did smoke 1 pack per day, though has not smoked in approximately 20 or more years. There is no known alcohol or illicit drug use. The patient does live at home with his . He does occasionally require the assistance of a walker, though she states he can ambulate without it at times. FAMILY HISTORY: Positive for his mother having a possible heart disease. His father had dementia. ALLERGIES: Patient has no known allergies. MEDICATIONS: 1. Norvasc 5 mg p.o. daily. 2. Aspirin 81 mg p.o. daily. 3. Symbicort 160/4.5 mcg inhaler, 2 puffs inhaled b.i.d. 4. Flonase allergy relief 2 sprays daily bilateral nares p.r.n. 5. Lasix 20 mg p.o. p.r.n. as directed. 6. Ketoconazole 2% cream 1 application as ordered p.r.n. as directed. 7. Lantiseptic cream 1 application as ordered b.i.d. 8. Lisinopril 10 mg p.o. daily. 9. Niacin 1000 mg p.o. daily. 10. Omeprazole 20 mg p.o. daily. 11. Requip. 0.25 mg p.o. b.i.d. 12. Zoloft 100 mg p.o. daily. DIAGNOSTIC DATA/LABORATORY RESULTS: 1. White blood cell count is 13,850, hemoglobin is 10.9, hematocrit is 36, platelet count is 346,000. Sodium 136, potassium 3.2, chloride 103, serum bicarb is 24, BUN is 11, creatinine 0.6. Glucose 131, calcium 8.1, magnesium 2.1. Liver function tests within normal limits. ProBNP is 1273. Plasma lactate is 1.2. His troponin was less than 0.01. 2. Chest x-ray showed small left pleural effusion with basilar atelectasis and possible underlying infiltrate. 3. Though he did have a chest abdomen CTA performed after this, which did show no injury. There were small pleural effusions and cardiomegaly, though no pneumonia or infiltrates noted. Also noted on the CT study was a large distal abdominal aortic aneurysm which measures 5.5 cm in the AP diameter and 5.5 cm in transverse diameter, which extends 9 cm in length. 4. CT pelvis showed intertrochanteric fracture to the left hip. 5. CT thoracic and lumbar spine showed minimal anterior wedging to the T5 vertebrae, which may be old, and multiple lumbar fractures, all these may be old. The patient's did state that he had multiple lumbar fractures from his traumatic fall from the tree stand. 6. CT head and cervical spine showed an no hemorrhage, no injury. Cervical spine showed no acute fracture either. 7. Left wrist x-ray showed fractures to the distal radius and ulna. PHYSICAL EXAMINATION: VITAL SIGNS: Temperature 100 degrees, heart rate 109, respirations 18, blood pressure is 116/76. Oxygen saturation was 93%. The patient was on his CPAP at this time. GENERAL: Mr. Villaseñor is a pleasant 77-year-old male, he was resting in the inpatient bed. He is in no acute distress. He was sleeping upon my initial arrival, though was easily arousable with verbal stimulation. Once awoken, he was alert and oriented, able to answer questions and follow commands. HEENT: Head is atraumatic, normocephalic. Pupils are equal, round, reactive to light, were 3 mm bilaterally and brisk. Oral mucosa was moist. Oropharynx was clear. NECK: Supple. Trachea midline. No overt JVD noted. CARDIOVASCULAR: Patient has S1, S2 present. No murmurs, gallops, rubs appreciated with a regular rate and rhythm. PULMONARY: Lung sounds were clear to auscultation in bilateral full lau. ABDOMEN: Soft, nontender, nondistended. Bowel sounds are present in all 4 quadrants. EXTREMITIES: The patient does have a left frwuf-mfn-ycgl amputation noted. He does have some tenderness noted upon palpation of his left hip area. He does have a splint noted to his left upper extremity for stabilization of his radius and ulnar fractures. Though capillary refill is intact in all extremities, which is less than 3, we were only able to assess his right-sided pulses, which his right upper extremity and left lower extremity did have pulses that were 2+. The patient is able to move all extremities and does have sensation in all extremities. INTEGUMENTARY: The patient's skin is pink, warm, and dry. NEUROLOGICAL: Patient is alert and oriented to person, place, and time. He is able to move all extremities. The patient does have a tremor noted to his right hand and does have occasional twitching of his right foot as well. He does have mask-like facial expression noted. Other than this, there do not appear to be any focal neurological deficits noted. ASSESSMENT AND PLAN: 1. Left intertrochanteric hip fracture. For this, the patient has been placed on strict bed rest. He is NPO at this time until he is evaluated by orthopedic surgery. We have placed a consult with Dr. Khan. We will await their evaluation and further recommendations for management. 2. Left distal radius and ulnar fracture. As mentioned above, he will be NPO. The patient has had his fracture splinted, as previously mentioned. We have placed a consult with Dr. Khan with orthopedic surgery and we will await his evaluation and recommendations. 3. A fall from standing position for which the patient sustained injuries, as mentioned above, of left hip fracture and left radius and ulnar fracture. 4. Parkinson disease. We will continue his regularly prescribed medicines for this. 5. Dementia, aware. 6. Chronic obstructive pulmonary disease. For this we have continued the patient's Symbicort. We will continue his continuous oxygen supplementation. 7. Sleep apnea. The patient did bring his CPAP machine from home. We will continue this nightly. 8. Deep vein thrombosis prophylaxis. At this time we will defer venous thromboembolism prophylaxis to orthopedic surgery given that he will likely go to surgery sometime tomorrow. Of course, at this time, we will hold any anticoagulants given that he will be a surgical candidate. 9. The patient has been placed on the surgical floor with telemetry. He will have vital signs q.4 hours. We will do strict intake and output, incentive spirometry. Also, the patient did have some slight leukocytosis. I believe, at this time, this may be reactive secondary to his fall. He does not have any signs of infection at this time. He does not have any signs or symptoms of infection at this time, and he has been afebrile. We will continue to monitor. 10. He was also mildly hypokalemic. We have replaced this. We will recheck a chemistry in the morning. Further orders and recommendations pending hospital course, diagnostic studies, and physician evaluations. Dictated by JOSHUA Morejon for Chaim Ty MD cc: Chaim Ty MD
[2018-08-08] MEDS: KEFZOL 1 GM/D5W 1 GM/50 ML IVPB IV SCH ×2 (04:45→13:02)
--- NOTE | 2018-08-08 06:27 | PROGRESS NOTE ---
DATE: 08/08/2018 SUBJECTIVE: The patient is a pleasant 77-year-old male who is 1 day status post intramedullary nailing of femur and open reduction internal fixation of left distal radius. He is currently resting comfortably. OBJECTIVE: On physical examination the patient's left upper extremity is splinted and intact. He has good capillary refill distally. His left lower extremity dressing is intact. Compartments are soft. LABORATORY DATA: His hemoglobin is 10.3, hematocrit is 34.5. IMPRESSION: Postoperative day #1 status post intramedullary nailing of the left femur, and open reduction internal fixation of the left distal radius. PLAN: At this point we will begin mobilization with out bed to chair as tolerated once he is feeling better. The patient does use a below-knee prosthesis and will slowly progress with this once his strength improves postoperatively. Human Resources Director have been consulted for discharge planning for inpatient rehabilitation. cc: Merritt Khan MD
[2018-08-08] MEDS: OXY IR PO PRN ×2 (06:28→21:04)
[2018-08-08] MEDS: XARELTO PO SCH (06:28)
[2018-08-08] MEDS: PRILOSEC PO SCH (06:28)
[2018-08-08] MEDS: TYLENOL PO SCH ×3 (06:28→21:07)
[2018-08-08 06:56] LABS: HEMATOCRIT 30.4 % (42.0-52.0); HEMOGLOBIN 8.9 g/dL (14.0-18.0)
[2018-08-08 07:11] LABS: AGAP 9; BUN 12 mg/dL (8-22); CALCIUM 7.9 mg/dL (8.8-10.2); CHLORIDE 106 mmol/L (98-107); COSMO 279; CREATININE 0.6 mg/dL (0.7-1.2); ESTIMATED GFR > 60; GLUCOSE 97 mg/dL (70-104); POTASSIUM 3.6 mmol/L (3.5-5.1); SODIUM 140 mmol/L (136-145); TCO2 25 mmol/L (25-35)
[2018-08-08] MEDS: SYMBICORT 160/4.5 MICROGM INHALER INH SCH ×2 (07:30→19:00)
[2018-08-08] MEDS: PRINIVIL PO SCH (08:10)
[2018-08-08] MEDS: ZOLOFT PO SCH (08:10)
[2018-08-08] MEDS: NORVASC PO SCH (08:10)
[2018-08-08] MEDS: FERROUS SULFATE PO SCH (08:10)
--- NOTE | 2018-08-08 08:38 | PROGRESS NOTE ---
DATE: 08/07/2018 INTERVAL HISTORY: Patient is status post surgical repair of left hip and distal arm fractures. Arousable but quite somnolent postop. No new complaints currently. No other acute events. REVIEW OF SYSTEMS: Difficult to obtain secondary to patient still being sedated postop. LABORATORY: WBC 12.4, hemoglobin 10.3, hematocrit 34.5, and platelets 337,000. Sodium 138, potassium 3.7, BUN 11, creatinine 0.7, and glucose 124. VITALS: T-max 100.5 degrees, pulse 92, respiratory rate 16, blood pressure 103/69, and O2 saturation 94% on 4 L by nasal cannula. PHYSICAL EXAMINATION: General: No acute distress. Vitals: As above. HEENT: Normocephalic, atraumatic. Moist mucous membranes. No cervical adenopathy. Cardiovascular: Regular rate and rhythm. No murmurs, rubs, or gallops. Pulmonary: A few scattered crackles primarily at the bases, but largely clear to auscultation bilaterally. Abdomen: Soft, nontender, and nondistended. Bowel sounds positive. Extremities: Peripheral pulses decreased but intact. Left arm bandaged. Left hip bandaged. No clubbing or cyanosis. Neurologic: Exam is somewhat limited by patient's somnolence, but no clear focal deficits. Slight pill-rolling tremor noted. Psychiatric: Somnolent but arousable, falls back asleep immediately. Intermittently follows commands currently. Skin: No new rashes or lesions. ASSESSMENT AND PLAN: 1. Left hip, radius and ulnar fractures status post surgical repair earlier today by Orthopedic Surgery. Management as per Surgery, likely needing rehab at discharge. 2. Parkinson's dementia. We will continue home medications. 3. Hypokalemia. Will replete. Monitor. 4. Chronic obstructive pulmonary disease. Nebs as needed. On 2 to 3 L oxygen at home, which we will continue here. 5. Abdominal aortic aneurysm. 5.5 cm on imaging today. Family is aware and has been monitoring. 6. Old lumbar fractures likely osteoporosis noted incidentally on imaging. No acute fractures noted. 7. Low-grade fevers. Patient with persistent low-grade fevers today. May be reaction to acute fractures, but given his pulmonary history and multiple previous bouts of pneumonia will start on Levaquin for now empirically. Repeat chest x-ray in the morning. Monitor respiratory status. Urine quite clean, so does not appear to have a UTI. No evidence of cellulitis or other skin soft tissue infection.
[2018-08-08] MEDS: NS 1,000 ML IV SCH ×2 (08:49→16:41)
--- NOTE | 2018-08-08 10:06 | Diag Imaging Result Doc PS360 ---
EXAM: CHEST-PORTABLE 08/08/2018 HISTORY: hypoxia, fever TECHNIQUE: AP portable upright at 0949 COMMENT: Compared to 08/06/2018 there has been some improvement in the opacities in the left base but slightly increased platelike atelectasis over the right hemidiaphragm. IMPRESSION: Improved atelectasis and/or pneumonia in the lingula and left lower lobe. Slightly worsened right lower lobe atelectasis. Electronically signed by Aleksandr Salguero 08/08/2018 10:04 AM
[2018-08-08] MEDS: MORPHINE IV PRN (13:02)
[2018-08-08] MEDS: LEVAQUIN 750 MG/D5W 750 MG/150 ML IVPB IV SCH (14:20)
--- NOTE | 2018-08-08 17:00 | PROGRESS NOTE ---
DATE: 08/08/2018 INTERVAL HISTORY: Patient status post surgical repair of left hip and arm fractures yesterday. Some slight dyspnea this morning but it resolved largely spontaneously. This is a frequent occurrence for patient as he has severe COPD and is on 2-3 L of oxygen at home. O2 requirements remain stable here. No further fevers today. Chest x-ray showing likely atelectasis. No definite pneumonia. No other new complaints. Pain well controlled. No other acute events overnight. REVIEW OF SYSTEMS: Twelve point review of systems negative except as per interval history. LABS: Hemoglobin 8.9, hematocrit 30.4. Basic metabolic panel unremarkable. VITAL SIGNS: T-max 100.0 degrees, pulse 68, respirations 18, blood pressure 96/62, O2 saturation 97% on 3 L by nasal cannula. PHYSICAL EXAMINATION: General: No acute distress. Vital signs: As above. HEENT: Normocephalic, atraumatic. Moist mucous membranes. No cervical adenopathy. Cardiovascular: Regular rate and rhythm. No murmurs, rubs, or gallops. Pulmonary: Few scattered bibasilar crackles, left greater than right. Otherwise, clear to auscultation. No wheezing noted. Abdomen: Soft, nontender, nondistended. Bowel sounds positive. Extremities: Peripheral pulses decreased but intact. Left arm heavily bandaged. Left hip bandaged. Bandaging clean, dry, intact. No clubbing or cyanosis. Left BKA, stable. Neurologic: Cranial nerves grossly intact. No focal deficits. Minimal pill-rolling tremor noted and stable. Psychiatric: Normal mood and affect. Awake, alert. Following commands well. Skin: No new rashes or lesions. ASSESSMENT AND PLAN: 1. Left hip radius and ulnar fractures. Status post surgical repair yesterday. Management as per Surgery. Will likely need rehab at discharge. 2. Parkinson and dementia. Continue home medications. 3. Low-grade fever, possible community-acquired pneumonia. Patient with persistent low-grade fever just after admission. Initial chest CT showed effusion but no definite infection. X- ray today showing likely atelectasis but cannot entirely rule out pneumonia. Does have some crackles on exam. May have been trying to get a little bit of community-acquired pneumonia on admission which is now developing. We will continue Levaquin and monitor. 4. Hypokalemia. Improved status post repletion. Monitor. 5. Chronic obstructive pulmonary disease. Nebs as needed. On 2-3 L of oxygen at home which we will continue here. No signs of exacerbation at this time. 6. Abdominal aortic aneurysm, 5.5 cm on imaging. Family aware and has been monitoring and has discussed with vascular surgery in the past, but elected to not pursue aggressive measures for this. 7. Old lumbar fractures and likely osteoporosis. This was an incidental finding. No acute fractures noted. Pain well controlled.
[2018-08-09] MEDS: NS 1,000 ML IV SCH ×2 (00:27→09:36)
--- NOTE | 2018-08-09 06:23 | PROGRESS NOTE ---
DATE: 08/09/2018 SUBJECTIVE: Patient is a 77-year-old male who is 2 days status post intramedullary nailing of the left femur and open reduction internal fixation, open reduction, internal fixation left distal radius. He is currently resting comfortably. OBJECTIVE: On physical examination, the patient's left upper extremity splint is intact. He is able to flex his fingers. The left lower extremity dressing is intact. Compartments are soft. LABORATORY: Hemoglobin is 8.9 and hematocrit is 30.4. IMPRESSION: 1. Postoperative day #2. 2. Status post intramedullary nailing of the left femur. 3. Open reduction, internal fixation left distal radius. PLAN: At this point, the patient will continue with progressive physical therapy. He is stable from an orthopedic standpoint. He is awaiting rehab placement. cc: Merritt Khan MD
[2018-08-09 06:32] LABS: HEMATOCRIT 29.4 % (42.0-52.0); HEMOGLOBIN 8.5 g/dL (14.0-18.0)
[2018-08-09] MEDS: PRILOSEC PO SCH (06:38)
[2018-08-09] MEDS: XARELTO PO SCH (06:38)
[2018-08-09] MEDS: TYLENOL PO SCH ×3 (06:38→21:33)
[2018-08-09] MEDS: SYMBICORT 160/4.5 MICROGM INHALER INH SCH ×2 (07:32→20:10)
[2018-08-09] MEDS: REQUIP PO SCH ×2 (09:37→21:32)
[2018-08-09] MEDS: PRINIVIL PO SCH (09:37)
[2018-08-09] MEDS: NORVASC PO SCH (09:37)
[2018-08-09] MEDS: FERROUS SULFATE PO SCH (09:38)
[2018-08-09] MEDS: PERIDEX MT SCH ×2 (09:38→21:33)
[2018-08-09] MEDS: ZOLOFT PO SCH (09:38)
[2018-08-09] MEDS: LANTISEPTIC CREAM TOP SCH ×2 (09:40→21:37)
[2018-08-09] MEDS: LEVAQUIN 750 MG/D5W 750 MG/150 ML IVPB IV SCH (13:43)
[2018-08-09] MEDS ORDERED: LASIX IV ONE (15:49)
[2018-08-09 17:09] LABS: AGAP 6; BUN 9 mg/dL (8-22); CALCIUM 7.4 mg/dL (8.8-10.2); CHLORIDE 101 mmol/L (98-107); COSMO 262; CREATININE 0.6 mg/dL (0.7-1.2); ESTIMATED GFR > 60; GLUCOSE 112 mg/dL (70-104); POTASSIUM 3.2 mmol/L (3.5-5.1); SODIUM 131 mmol/L (136-145); TCO2 24 mmol/L (25-35)
--- NOTE | 2018-08-09 18:30 | PROGRESS NOTE ---
DATE: 08/09/2018 INTERVAL HISTORY: Still some mild intermittent dyspnea, but otherwise no acute events overnight. No new complaints. O2 sats reasonable on his home, but on slightly more oxygen when he is at home. Pain reasonably well controlled. REVIEW OF SYSTEMS: Twelve point review of systems negative except as per interval history. LABORATORY: Hemoglobin 8.5, hematocrit 29.4. VITALS: T-max 100 degrees, pulse 102, respirations 18, blood pressure 112/69, O2 saturation 92% on CPAP with 6 L of oxygen. PHYSICAL EXAMINATION: General: No acute distress. Vitals: As above. HEENT: Normocephalic, atraumatic. Moist mucous membranes. No cervical adenopathy. Cardiovascular: Regular rate and rhythm. No murmurs, rubs, or gallops. Pulmonary: Still a few scattered bibasilar crackles, left greater than right. No wheezing noted. Abdomen: Soft, nontender, and nondistended. Bowel sounds positive. Extremities: Peripheral pulses decreased but intact. Left arm heavily bandaged. Left hip bandaged. Bandaging clean, dry, and intact. No clubbing or cyanosis. Left BKA stable. Neurologic: Cranial nerves grossly intact. No focal deficits. Tremor stable. Psychiatric: Normal mood and affect. Awake and alert, following commands well. Skin: No new rashes or lesions. ASSESSMENT AND PLAN: 1. Left hip, radius, and ulnar fractures. Status post surgical repair 08/07. Cleared per surgery and pending rehab. 2. Dyspnea, possible community-acquired pneumonia. The patient with some low-grade fevers on admission. Initial chest CT showed effusion, but no definite infection. X-ray showing repeat x-ray showing atelectasis but can't entirely rule out pneumonia. Does have some crackles on exam and increased oxygen requirement, so Levaquin was started. Temperature appears to have trended down since then. Given mildly elevated BNP. We will also check an echo and give a single dose of Lasix to evaluate for possible CHF. 3. Chronic obstructive pulmonary disease and chronic hypoxic respiratory failure. Continue nebulizers as needed. On 2 to 3 L of oxygen at home. Slightly increased oxygen requirements today for the last couple of days. Antibiotics and Lasix started as above. No signs of exacerbation at this time. 4. Parkinson's dementia. Continue home medications. 5. Abdominal aortic aneurysm 5.5 cm on imaging. Family aware and has monitored in the past but is no longer monitoring as they discussed the case with vascular surgeon, and felt he was too high risk to pursue aggressive measures. 6. Old lumbar fractures and likely osteoporosis. Incidental finding. No acute spine fractures noted. Pain well controlled.
[2018-08-09] MEDS: COLACE PO SCH (21:32)
[2018-08-10] MEDS: TYLENOL PO SCH ×4 (05:05→22:53)
[2018-08-10] MEDS: PRILOSEC PO SCH ×2 (05:05→06:33)
[2018-08-10] MEDS: XARELTO PO SCH (05:05)
[2018-08-10 06:09] LABS: BASO# 0.06 X1000 (0.0-0.2); BASO% 0.6 % (0.0-0.8); EOS# 1.08 X1000 (0.0-0.7); EOS% 10.5 % (0.0-10.0); HEMATOCRIT 27.8 % (42.0-52.0); HEMOGLOBIN 8.4 g/dL (14.0-18.0); IMM GRAN# 0.15 X1000 (0.0-0.04); IMM GRAN% 1.5 % (0.0-0.5); LYMPH# 1.12 X1000 (1.2-3.4); LYMPH% 10.9 % (20.5-51.1); MCH 24.9 PG (27-31); MCHC 30.2 g/dL (33-37); MCV 82.5 FL (81-99); MONO# 0.67 X1000 (0.11-0.59); MONO% 6.5 % (1.7-9.3); MPV 10.3 FL (7.4-10.4); NEUT# 7.21 X1000 (1.4-6.5); PLT 252 X1000 (130-400); RBC 3.37 XMIL (4.7-6.1); RDW 17.4 % (11.5-14.5); WBC 10.29 X1000 (4.8-10.8)
[2018-08-10] MEDS: SYMBICORT 160/4.5 MICROGM INHALER INH SCH ×2 (07:20→19:24)
--- NOTE | 2018-08-10 07:47 | Diag Imaging Result Doc PS360 ---
EXAM: CHEST-PORTABLE 08/10/2018 HISTORY: dyspnea TECHNIQUE: AP portable upright at 0712 COMMENT: There is worsened lingular atelectasis compared to 08/08/2018. The lungs are slightly better expanded. Otherwise there has been no significant change. IMPRESSION: Worsened lingular atelectasis. Mild pulmonary edema. Electronically signed by Aleksandr Salguero 08/10/2018 7:44 AM
[2018-08-10] MEDS: FERROUS SULFATE PO SCH (08:19)
[2018-08-10] MEDS: PERIDEX MT SCH ×2 (08:19→20:42)
[2018-08-10] MEDS: REQUIP PO SCH ×2 (08:19→20:42)
[2018-08-10] MEDS: ZOLOFT PO SCH (08:20)
[2018-08-10] MEDS: LANTISEPTIC CREAM TOP SCH ×2 (08:21→22:53)
[2018-08-10 11:01] LABS: ESTIMATED GFR > 60
[2018-08-10] MEDS: LASIX IV SCH ×2 (11:15→20:42)
[2018-08-10 11:45] LABS: AGAP 8; BUN 11 mg/dL (8-22); CHLORIDE 103 mmol/L (98-107); COSMO 273; CREATININE 0.6 mg/dL (0.7-1.2); GLUCOSE 96 mg/dL (70-104); SODIUM 137 mmol/L (136-145); TCO2 26 mmol/L (25-35)
[2018-08-10] MEDS ORDERED: POTASSIUM CHLORIDE 60 MEQ in NS 500 ML IV ONE (13:00)
--- NOTE | 2018-08-10 13:09 | ECHO REPORT ---
ORDER DATE: 08/09/2018 INTERPRETING PHYSICIAN: Dr. Martniez REQUESTING PHYSICIAN: CLINICAL INDICATIONS: This is a 77-year-old male with suspected CHF, hypertension. M-MODE MEASUREMENTS: Right ventricle: cm. Left ventricle end diastole: 4.1 cm. Left ventricle end systole: 2.6 cm. Posterior wall: 1.0 cm. Interventricular septum: 1.0 cm. Left atrium: 3.7 cm. Aortic root: 3.3 cm. SUMMARY OF 2-DIMENSIONAL IMAGIN. The study was technically difficult. Definity was added. The patient is on a BiPAP system. 2. The left ventricular function is excellent. Ejection fraction is 65% to 70%. 3. There is mild degree of aortic stenosis. Maximum gradient is about 21 mmHg, mean gradient is 13 mmHg. That is consistent with mild degree of stenosis. 4. Aortic valve is calcified. 5. The pulmonic valve looks normal. Color flow mapping is unremarkable. 6. Tricuspid valve shows mild degree of regurgitation. 7. Inferior vena cava is not dilated. 8. Pulmonary pressure is estimated to be in the range of 38 to 43 mmHg. 9. Mitral valve looks normal with mild degree of regurgitation. 10.Pulse wave Doppler of mitral inflow shows reversal of the E and the A ratio. 11.Tissue Doppler of septal and lateral mitral annulus averages 11 cm. 12.There is no diastolic dysfunction. 13.There is no pericardial effusion, mass or thrombus. Clinical correlation is recommended. cc: Hesham Martinez MD
[2018-08-10] MEDS: LEVAQUIN 750 MG/D5W 750 MG/150 ML IVPB IV SCH (13:32)
--- NOTE | 2018-08-10 14:52 | PROGRESS NOTE ---
DATE: 08/10/2018 INTERVAL HISTORY: Mild intermittent dyspnea is somewhat improved. No acute events overnight. No new complaints. Pain well controlled. Oxygen requirement stable. REVIEW OF SYSTEMS: Twelve point review except as per interval history. LABORATORY DATA: White BC 10.2, hemoglobin 8.4, hematocrit 27.2, platelets 352,000. Sodium 137, potassium 3, bicarb 26, BUN 11, creatinine glucose 96, calcium 1.2, ionized calcium 1.14. IMAGING: Chest x-ray with continued mild pulmonary edema. Possibly minimally worsened lingular atelectasis. Lungs slightly better expanded overall. PHYSICAL EXAMINATION: Vital signs: Temperature 98.8 degrees, pulse 87, respirations 24, blood pressure 159/90, O2 saturation 91% on 5 L by nasal. General: No acute distress. HEENT: Normocephalic, atraumatic. Cardiovascular: Regular rate and rhythm. No murmurs, rubs, or gallops. Pulmonary: Scattered bibasilar crackles remain. Left greater than right. No wheezing noted. Fair air entry. Abdomen: Soft, nontender, nondistended. Bowel sounds positive. Extremities: Peripheral pulses remain decreased but intact. Left arm heavily bandaged. Left hip bandaged, bandaging clean, dry, intact. No clubbing or cyanosis. Left BKA stable. Neurologic: Cranial nerves grossly intact. Mild global weakness, but no focal deficits. Tremor stable. Psychiatric: Normal mood, slightly flat affect. Awake, alert, following commands well. Skin: No new rashes or lesions. ASSESSMENT AND PLAN: 1. Left hip radius and ulnar fractures. Status post surgical repair for 10. Cleared by surgery from their standpoint, and pending rehab. 2. Dyspnea, possible community-acquired pneumonia versus mild volume overload. The patient with some low-grade fevers on admission which were fairly persistent until started on antibiotics with Levaquin. Fevers have since resolved. Initial CT showed effusion, but no definite infection. Saw some crackles on exam and mildly elevated BNP. Some slight improvement in mild dyspnea with Lasix yesterday. Echocardiogram obtained showing normal EF. Some mild pulmonary hypertension. No diastolic dysfunction. We will give a couple more doses of Lasix today, but given lack of suha heart failure on echo, history of severe COPD and chronic oxygen dependence and mildly findings on x-ray, can likely discontinue Lasix after today. We will continue Levaquin for a 7 to 10 day course to treat his possible pneumonia. 3. Chronic obstructive pulmonary disease and chronic hypoxic respiratory failure. Continue nebulizers as needed. On 3 L of oxygen at home. Has been on slightly more oxygen here, but may be due to worsening of his under disease rather than other etiology. 4. Parkinson's with dementia. Dementia component appears to be fairly mild. Continue home medications. 5. Abdominal aortic aneurysm, 5.5 cm on imaging. Family aware and has monitored in the past, but is no longer monitoring and patient discussed the case with Vascular Surgery and after discussion, felt that he was too high risk to pursue aggressive measures. 6. Old lumbar fractures and likely osteoporosis. Incidental finding. No acute spine fractures noted. Pain well controlled.
[2018-08-10] MEDS: COLACE PO SCH (20:42)
[2018-08-10] MEDS: OXY IR PO PRN (22:52)
[2018-08-11] MEDS: PRILOSEC PO SCH ×2 (05:30→05:59)
[2018-08-11] MEDS: XARELTO PO SCH (05:30)
[2018-08-11] MEDS: TYLENOL PO SCH ×4 (05:30→23:23)
[2018-08-11 06:04] LABS: BASO# 0.06 X1000 (0.0-0.2); BASO% 0.5 % (0.0-0.8); EOS# 1.03 X1000 (0.0-0.7); EOS% 9.2 % (0.0-10.0); HEMATOCRIT 30.6 % (42.0-52.0); HEMOGLOBIN 9.1 g/dL (14.0-18.0); IMM GRAN# 0.33 X1000 (0.0-0.04); IMM GRAN% 2.9 % (0.0-0.5); LYMPH# 1.14 X1000 (1.2-3.4); LYMPH% 10.1 % (20.5-51.1); MCH 24.6 PG (27-31); MCHC 29.7 g/dL (33-37); MCV 82.7 FL (81-99); MONO# 0.82 X1000 (0.11-0.59); MONO% 7.3 % (1.7-9.3); NEUT# 7.87 X1000 (1.4-6.5); PLT 301 X1000 (130-400); RDW 17.6 % (11.5-14.5); WBC 11.25 X1000 (4.8-10.8)
[2018-08-11 06:40] LABS: AGAP 8; BUN 12 mg/dL (8-22); CALCIUM 8.4 mg/dL (8.8-10.2); CHLORIDE 103 mmol/L (98-107); COSMO 281; CREATININE 0.6 mg/dL (0.7-1.2); ESTIMATED GFR > 60; GLUCOSE 93 mg/dL (70-104); POTASSIUM 3.4 mmol/L (3.5-5.1); SODIUM 141 mmol/L (136-145); TCO2 30 mmol/L (25-35)
[2018-08-11] MEDS: SYMBICORT 160/4.5 MICROGM INHALER INH SCH ×2 (07:32→20:01)
[2018-08-11] MEDS: ZOLOFT PO SCH (08:56)
[2018-08-11] MEDS: FERROUS SULFATE PO SCH (08:56)
[2018-08-11] MEDS: PERIDEX MT SCH ×2 (08:56→20:03)
[2018-08-11] MEDS: LASIX IV SCH ×2 (08:57→20:03)
[2018-08-11] MEDS: LANTISEPTIC CREAM TOP SCH ×2 (08:59→20:05)
--- NOTE | 2018-08-11 09:13 | PROGRESS NOTE ---
DATE: 08/11/2018 SUBJECTIVE: Patient has no new complaints. He slept last night with his CPAP. OBJECTIVE: Vital Signs: Reviewed. Temperature 98 degrees, pulse 81, respiratory 18, blood pressure 144/89, saturation 95% home CPAP. General: Patient is in no current distress. HEENT: Normocephalic. Neck: Supple. CARDIOVASCULAR: Regular rate. No murmurs. Chest: No wheezing. Good air movement. Abdomen: Soft, nondistended, nontender. Extremities: Moves all extremities. Left hip bandage is clean, dry and intact. He does have a left below-knee amputation that is stable. Neurologic: No focal changes. ASSESSMENT: 1. Left hip radius and ulnar fractures. 2. Dyspnea, with questionable pneumonia, still on Levaquin. 3. Chronic obstructive pulmonary disease. 4. Chronic oxygen dependence. 5. Parkinson's with dementia. 6. Abdominal aortic aneurysm at 5.5 by imaging. PLAN: We will continue patient in the hospital. Hopefully, he can transition to rehab when bed is available. He currently is taking a regular diet. We will change him to Levaquin p.o. in preparation for discharge. cc: Shola Kate MD
[2018-08-11] MEDS: REQUIP PO SCH ×2 (09:20→20:03)
[2018-08-11] MEDS: LEVAQUIN PO SCH (09:26)
[2018-08-11] MEDS: COLACE PO SCH (20:03)
[2018-08-12] MEDS: TYLENOL PO SCH ×2 (04:57→05:15)
[2018-08-12] MEDS: PRILOSEC PO SCH ×2 (04:58→06:45)
[2018-08-12] MEDS: XARELTO PO SCH ×2 (04:58→05:15)
[2018-08-12 05:55] LABS: BASO# 0.05 X1000 (0.0-0.2); BASO% 0.5 % (0.0-0.8); EOS% 8.2 % (0.0-10.0); HEMATOCRIT 31.2 % (42.0-52.0); HEMOGLOBIN 9.1 g/dL (14.0-18.0); IMM GRAN# 0.53 X1000 (0.0-0.04); IMM GRAN% 4.8 % (0.0-0.5); LYMPH# 1.21 X1000 (1.2-3.4); MCH 24.3 PG (27-31); MCHC 29.2 g/dL (33-37); MCV 83.4 FL (81-99); MONO# 0.68 X1000 (0.11-0.59); MONO% 6.2 % (1.7-9.3); MPV 10.1 FL (7.4-10.4); NEUT# 7.66 X1000 (1.4-6.5); NEUT% 69.3 % (42.2-75.2); PLT 308 X1000 (130-400); RBC 3.74 XMIL (4.7-6.1); RDW 17.9 % (11.5-14.5); WBC 11.03 X1000 (4.8-10.8)
[2018-08-12 06:25] LABS: AGAP 9; BUN 12 mg/dL (8-22); CALCIUM 7.9 mg/dL (8.8-10.2); CHLORIDE 99 mmol/L (98-107); COSMO 277; CREATININE 0.6 mg/dL (0.7-1.2); ESTIMATED GFR > 60; GLUCOSE 97 mg/dL (70-104); POTASSIUM 3.1 mmol/L (3.5-5.1); SODIUM 139 mmol/L (136-145); TCO2 31 mmol/L (25-35)
[2018-08-12] MEDS: SYMBICORT 160/4.5 MICROGM INHALER INH SCH (08:27)
[2018-08-12] MEDS: LASIX IV SCH (08:41)
[2018-08-12] MEDS: FERROUS SULFATE PO SCH (08:41)
[2018-08-12] MEDS: ZOLOFT PO SCH (08:42)
[2018-08-12] MEDS: LEVAQUIN PO SCH (08:43)
[2018-08-12] MEDS: PERIDEX MT SCH (08:43)
[2018-08-12] MEDS: REQUIP PO SCH (08:43)
[2018-08-12] MEDS: LANTISEPTIC CREAM TOP SCH (08:44)
[2018-08-12] MEDS ORDERED: KLOR-CON PO ONE (09:55)
[2018-08-12 12:08] VITALS: BP 129/76
--- NOTE | 2018-08-12 15:40 | DISCHARGE SUMMARY ---
ADMISSION DATE: 08/06/2018 DISCHARGE DATE: 08/12/2018 ADMISSION DIAGNOSES: 1. Left intertrochanteric hip fracture. 2. Left distal radius and ulna fracture. 3. Parkinson's. 4. Dementia. 5. Chronic obstructive pulmonary disease. 6. Obstructive sleep apnea. DISCHARGE DIAGNOSES: 1. Left intertrochanteric hip fracture. 2. Left distal radius and ulna fracture. 3. Parkinson's. 4. Dementia. 5. Chronic obstructive pulmonary disease. 6. Obstructive sleep apnea. DIAGNOSTIC PROCEDURES AND FINDINGS: Chest x-ray on 08/06/2018 with small left pleural effusion with basilar atelectasis and possibly an underlying infiltrate. Wrist x-ray 08/06/2018 with fractures to the distal radius and ulna. Head and cervical spine CT on 08/06/2018 with no hemorrhage, no injury, no acute cervical spine fracture. Thoracic and lumbar spine CT on 08/06/2018 with minimal anterior wedging to the T5 vertebra, which may be old, multiple lumbar fractures - all of these may be old. Pelvis CT on 08/06/2018 with intertrochanteric left hip fracture. Chest and abdomen CTA on 08/06/2018 - chest no injury, small pleural effusions, and cardiomegaly; abdomen and pelvis - no injury, large distal abdominal aortic aneurysm measuring 5.5 cm in transverse diameter and 9 cm in length. CONSULTATIONS: Dr. Khan with Orthopedics. HOSPITAL COURSE: Mr. Villaseñor is a 77-year-old male who presented to the ER after sustaining two falls the day prior to admission. He did not hit his head or lose consciousness. He uses a prosthesis for his left lower extremity secondary to BKA. He did not immediately come to the ER after he fell but he began having progressively worsening orthopedic pain to his hip and to his left wrist. He came to the ER for evaluation and was noted to have a left intertrochanteric hip fracture and left displaced distal radial fracture. He was placed in a splint and admitted to our service. We consulted Dr. Khan with Orthopedics, who did intramedullary nailing of the left femur and ORIF of the left distal radius with [employer] volar column distal radial locking plate. His surgery went well. There was were no immediate complications. He does have a history of abdominal aortic aneurysm. This was CT'd on admission and felt to be stable. On postoperative day #2 there was question of pneumonia, so he was put on Levaquin. This resolved. We also ordered an echocardiogram on 08/09/2018 which showed an EF of 65% to 70%. There was mild noted. He was also given a few doses of Lasix for suspected heart failure, although this was stopped once his echo was deemed normal. Overall, he improved with regards to his breathing. Physical Therapy was consulted for his orthopedic surgery and he is felt to be stable for discharge. DISCHARGE MEDICATIONS: Aspirin 81 mg daily, Symbicort 160/4.5 mcg inhaler b.i.d., fluticasone inhaled daily as needed, Lasix 20 mg as needed, ketoconazole 2% cream as needed, lanolin cream as needed, niacin 1000 mg p.o. daily, omeprazole 20 mg daily, Requip 0.25 mg p.o. b.i.d., Zoloft 100 mg daily, lisinopril 10 mg daily, oxycodone 5 mg p.o. q three hours as needed, iron sulfate 325 mg p.o. with breakfast, Lasix 40 mg daily, Levaquin 750 mg p.o. daily, Milk of Magnesia 30 mL daily as needed, Colace 200 mg at bedtime, Xarelto 10 mg p.o. q 24. DISCHARGE DIET: Heart healthy. DISCHARGE ACTIVITY: Resume activity as tolerated under the direction of long- term care. DISPOSITION AND OTHER DISCHARGE INSTRUCTIONS: The patient is discharged to rehab facility. He is to continue all medications as directed. Follow up with Dr. Khan as directed and his PCP within the next week two to three weeks as needed, or sooner if needed. All questions answered. Discharge time greater than 35 minutes. Dictated by JOSHUA Adams for Khris Kelly MD Addendum: Patient seen and examined by myself. Agree with JOSHUA note. It reflects my assessment and plan. Patient is being discharged in stable condition. Patient is going to rehab facility. Will be seen by PCP in a week after discharge from rehab. cc: JOSHUA Adams MD [facility]
== END 2018-08-12 16:00 | DRG 480 ==
LOC: ED 14:00 → 4N 23:30 → SUATTDRO 23:30
PROVIDERS: ATTEND Internal Medicine
CPT/HCPCS: 51702; 70450; 71010; 71045; 71275; 72125; 72128; 72131; 72192; 73110; 74175; 76000; 80048; 80053; 81001; 82330; 83605; 83735; 83880; 84484; 85014; 85018; 85025; 86850; 86900; 86901; 87040; 93005; 93306; 94640; 94760; 94761; 96365; 96375; 97110; 97163; 97530; 99285; A9270; C8929; J0131; J0330; J0690; J0696; J1940; J1956; J2270; J2370; J3010; J3480; J7030; J7040; Q9957; Q9967; S0020